=== PATIENT | male | born 1995 | race Caucasian/White ===

== ENCOUNTER 2017-04-07 18:03 | Emergency (ER) | payer MEDICAID, BC ==
[2017-04-07] MEDS ORDERED: FLUORESCEIN STRIP (20:10)
[2017-04-07] MEDS ORDERED: TETRACAINE 0.5% 4 ML OPH (20:10)
[2017-04-07] MEDS: TETRACAINE 0.5% 4 ML OPH LEFT EYE (20:27)
[2017-04-07] MEDS: FLUORESCEIN STRIP LEFT EYE (20:27)
== END 2017-04-07 21:16 | disposition home or self-care (01) ==
LOC: FTE 18:03
DX: S05.01XA Injury of conjunctiva and corneal abrasion without foreign body, right eye, initial encounter (principal); W22.8XXA Striking against or struck by other objects, initial encounter; Y92.9 Unspecified place or not applicable
CPT/HCPCS: 99283; Z7502